=== PATIENT | male | born 1960 | race Caucasian/White ===

== ENCOUNTER → 2016-10-06 | Outpatient (CLI) | payer OTHER ==
[~2016-10-06] MED LIST: ALDACTONE25 MG PO; ASPIRIN81 MG PO; CLOPIDOGREL75 MG PO; COATED ASPIRIN325 M1 PO; COREG6.25 M1 PO; COREG6.25 MG PO; EFFIENT10 MG PO; FISH OIL 1,001000 M1 PO; KEFLEX500 M2 PO; LIPITOR40 MG PO; LISINOPRIL5 MG PO; MUPIROCIN0.9 GM EXT; RAPAFLO8 MG PO; ZESTRIL2.5 M1 PO
--- NOTE | ~2016-10-06 | EKG ---
PATIENT: SYED GRIFFIN UNIT #: [id number] Ventricular Rate: 79 BPM Atrial Rate: 79 BPM P-R Interval: 152 ms QRS Duration: 102 ms Q-T Interval: 374 ms QTC Calculation(Bezet): 428 ms P [place]: 18 degrees Calculated R [place]: 41 degrees Calculated T [place]: 8 degrees Diagnosis Line: Normal sinus rhythm Diagnosis Line: Inferior infarct (cited on or before 26-AUG-2013) Diagnosis Line: Consider prior anteroseptal infarct by series Diagnosis Line: Nonspecific ST abnormality Diagnosis Line: Abnormal ECG Diagnosis Line: When compared with ECG of 01-AUG-2015 10:03, Diagnosis Line: T wave inversion now evident in Inferior leads Diagnosis Line: Nonspecific T wave abnormality now evident in Diagnosis Line: Lateral leads Diagnosis Line: Confirmed by PITO MOSQUEDA MD ([id number]) on Diagnosis Line: 10/07/2016 4:40:27 PM INTERPRETING MD: GALLITO
[2016-10-06 10:26] LABS: HEMOGLOBIN 14.7 gm/dL (13.0-16.0); MEAN CELL VOLUME 99.8 FL (83-96); MEAN CORPUSCULAR HEMOGLOBIN 34.9 PG (28-34); MEAN PLATELET VOLUME 7.7 FL (6.5-11.5); RED BLOOD COUNT 4.21 X10e (3.90-5.60); RED CELL DISTRIBUTION WIDTH 14.5 % (11.0-15.5); WHITE BLOOD COUNT 7.3 X10e3 (4.0-10.5)
[2016-10-06 11:28] LABS: CALCIUM SERUM 9.2 mg/dL (8.4-10.2); POTASSIUM 4.2 mmol/L (3.5-5.1)
== END | disposition home or self-care (01) ==
LOC: CAMB 10:02
PROVIDERS: Urology
DX: Z01.818 Encounter for other preprocedural examination (principal); R94.31 Abnormal electrocardiogram [ECG] [EKG]; I25.2 Old myocardial infarction; Z85.51 Personal history of malignant neoplasm of bladder
CPT/HCPCS: 36415; 80048; 85027; 93005

== ENCOUNTER → 2016-10-13 | Day surgery (SDC) | payer OTHER ==
--- NOTE | ~2016-10-13 | OR ---
Unit #: [id number] #: [id number] Patient: SYED MORRISSEY [id number] [address] [id number] [id number] O MR#: [id number] NAME: SYED MORRISSEY ROOM: Date of Procedure: 10/13/2016 Admission Date: 10/13/2016 Surgeon: Osorio Pacheco M.D. : 1960 Attending Physician: Osorio Pacheco M.D. Primary Care Physician: No Primary Care Physician PROCEDURE OPERATIVE NOTE PREOPERATIVE DIAGNOSIS History of bladder cancer. POSTOPERATIVE DIAGNOSIS Same. PROCEDURE PERFORMED 1. Cystoscopy. 2. Bladder biopsy with fulguration. SURGEON Dr. Pacheco ANESTHESIA General. INDICATIONS FOR PROCEDURE Mr. Morrissey is a pleasant 55-year-old gentleman with a distant history of bladder cancer. He has a new erythematous lesion around his left lateral wall. He has an element of neurogenic bladder and has been poorly compliant with clean intermittent catheterization but his creatinine is normal. He does have chronic hydro as he had a negative ureteroscopy in the past. The risks, benefits and alternatives including bleeding, infection, damage to adjacent structures, need for further surgery as well as the risk of anesthesia were explained to the patient. Also, cardiovascular risks were discussed with the patient. Because of his cardiovascular risk, we stopped his Plavix but did continue him on aspirin. He does understand the increased risk of bleeding due to aspirin. Full informed consent was obtained, he wished to proceed. DESCRIPTION OF PROCEDURE Patient was taken to the operative suite and properly identified. After the application of satisfactory general anesthetic, the patient was placed in supine position and then into the dorsal lithotomy position. All pressure points were padded at the satisfaction of surgical, anesthetic and nursing teams. Genitalia were prepped and draped in the usual sterile fashion. I introduced the rigid 22 Wolof cystoscope. The entire urethra was normal. The prostate was nonobstructing. The bladder had severe trabeculations. I identified the left then the right ureteral orifices which were patent. There was an erythematous area along the left lateral wall of the bladder which I biopsied several times using cold cup biopsy forceps. There were no other abnormal lesions. This was cauterized using Unit #: [id number] #: [id number] Patient: SYED MORRISSEY. There was no bleed. The bladder was emptied, the scope was removed. The patient tolerated the procedure well without complications. PLAN The plan will be for the patient to follow up in 1 week to discuss his pathology. Dictated by... Osorio Pacheco M.D. Mil TD: 10/13/2016 09:06 JOB #: [id number] PROCEDURE OPERATIVE NOTE Page 1 of 1 X Osorio Pacheco MD X PROCEDURE OPERATIVE NOTE
== END | disposition home or self-care (01) ==
LOC: CSUR 05:22
DX: N31.9 Neuromuscular dysfunction of bladder, unspecified (principal); N32.9 Bladder disorder, unspecified; J44.9 Chronic obstructive pulmonary disease, unspecified; I25.2 Old myocardial infarction; I73.9 Peripheral vascular disease, unspecified; I10 Essential (primary) hypertension; E78.5 Hyperlipidemia, unspecified; I25.10 Atherosclerotic heart disease of native coronary artery without angina pectoris; F17.210 Nicotine dependence, cigarettes, uncomplicated; Z85.51 Personal history of malignant neoplasm of bladder; Z95.5 Presence of coronary angioplasty implant and graft; Z79.82 Long term (current) use of aspirin; Z79.899 Other long term (current) drug therapy
CPT/HCPCS: 88305; J0330; J0690; J1100; J2250; J2405; J3010